=== PATIENT | female | born 1990 | race Caucasian/White ===

== ENCOUNTER 2018-07-11 14:15 | Inpatient (IN) | payer OTHER ==
[2018-07-11] MEDS ORDERED: MEPERIDINE HCL 25 MG/0.5 ML IV PRN (16:39)
[2018-07-11] MEDS ORDERED: BUTORPHANOL 1 MG/ML INJ IV PRN (16:39)
[2018-07-11] MEDS ORDERED: Ringers Lactate 1,000 ML IV PRN (16:39)
[2018-07-11] MEDS ORDERED: METHYLERGONOVINE 0.2MG/ML AMP IM PRN (16:39)
[2018-07-11] MEDS ORDERED: PROMETHAZINE 25 MG/ML VIAL IM PRN (16:39)
[2018-07-11] MEDS ORDERED: ZOLPIDEM TARTRATE 10 MG TABLET PO PRN (16:46)
[2018-07-11] MEDS ORDERED: OXYTOCIN/LR 20 UNIT/1,000 ML BAG IV SCH (17:00)
[2018-07-11] MEDS ORDERED: Ringers Lactate 1,000 ML IV SCH (17:00)
[2018-07-11] MEDS ORDERED: miSOPROStol 100 MCG TAB PO SCH (17:00)
[2018-07-11 17:09] LABS: RPR Titer ND
[2018-07-11 17:13] LABS: Absolute Lymphocytes (CBC) 2.4 K/uL (0.7-4.9); Absolute Monocytes 1.2 K/uL (0.1-1.3); Absolute Neutrophil 12.6 K/uL (1.8-8.0); Basophils % 0.3 % (0-1.3); Eosinophils % 0.3 % (0-4.4); Hematocrit 37.3 % (36.0-45.0); Lymphocytes % 14.6 % (15.3-44.8); MCH 30.5 pg (27.0-35.0); MCV 90.5 fL (80-100); MPV 9.7 fL (7.6-11.3); Monocytes % 7.3 % (3.3-12.3); RBC Red Blood Cell Count 4.13 M/uL (3.86-4.86)
[2018-07-11 17:23] LABS: Urine Appearance CLOUDY; Urine Bilirubin NEGATIVE (NEG); Urine Blood NEGATIVE (NEG); Urine Color YELLOW; Urine Glucose NEGATIVE (NEG); Urine Protein NEGATIVE (NEG); Urine Urobilinogen 0.2 mg/dL (0.2-1.0)
[2018-07-11 17:43] LABS: Urine Microscopic Reflex ORDER UMIC
[2018-07-11 17:58] LABS: Urine Bacteria <20 /HPF (<20); Urine Culture Reflex Order REFLEXED; Urine RBC <5 /HPF (NONE SEEN)
[2018-07-11 18:01] LABS: Urine Mucus 1+ /HPF (NONE SEEN); Urine Yeast FEW (NONE SEEN); Urine Yeast with Hyphae PRESENT
[2018-07-11 18:21] VITALS: BMI 28.0
[2018-07-11 22:20] LABS: RPR (Rapid Plasma Reagin) NON-REACT (NON-REACT)
--- NOTE | 2018-07-11 22:20 | PREOPHP ---
Date of Admission: 07/11/2018 Sharonda Jones is a 28-year-old, 2, para 1, 39 weeks 3 days, Rh positive, immune to Rubella, n egative beta strep screen, for Cytotec induction. The patient is 1.5 cm vertex, -1 station. Cytotec talk given. The patient will start with 25 mcg p.o. every 4 hours for somewhere between 3 and 6 dos es depending upon response. Then, after cervical ripening, start Pitocin induction. This has been ramila morse discussed with the patient in the office and here again today with her in attendance. Ramila naylor admission talk given. SAAD/VIDAL Voice ID: [id number]
[2018-07-12] MEDS ORDERED: FENTANYL/BUPIVACAINE/NS/PF 200 MCG/100 ML BAG EP PRN (07:28)
[2018-07-12] MEDS ORDERED: BUPIVACAINE 0.25% PF 10 ML VIAL IV PRN (07:29)
[2018-07-12] MEDS ORDERED: FENTANYL CITR 100 MCG/2 ML IV ONE (07:29)
[2018-07-12] MEDS ORDERED: BUPIVACAINE 0.25% PF 10 ML VIAL ONE (09:06)
[2018-07-12] MEDS ORDERED: LIDOCAINE 1% MPF 30 ML VIAL ONE (10:58)
[2018-07-12] MEDS ORDERED: METHYLERGONOVINE 0.2MG/ML AMP IM ONE (10:58)
[2018-07-12] MEDS ORDERED: ACETAMINOPHEN 500 MG TAB PO PRN (11:58)
[2018-07-12] MEDS ORDERED: IBUPROFEN 200 MG TAB PO PRN (11:58)
[2018-07-12] MEDS ORDERED: DOCUSATE NA/SENNA CONC 1 TAB PO PRN (11:58)
[2018-07-12] MEDS ORDERED: DIPHENHYDRAMINE 25 MG TAB/CAP PO PRN (11:58)
[2018-07-12] MEDS ORDERED: Oxycodone HCl/Acetaminophen 1 TAB TAB PO PRN (11:58)
[2018-07-12] MEDS ORDERED: BISACODYL 10 MG RECTAL SUPP RECT PRN (11:58)
[2018-07-12] MEDS ORDERED: OXYTOCIN/LR 20 UNIT/1,000 ML BAG IV SCH (12:00)
--- NOTE | 2018-07-12 12:42 | OP ---
Surgeon: Ramirez Almanzar MD A 28-year-old 2, para 1, 39 weeks 3 days, had Cytotec cervical ripening. This morning was st arted on oxytocin at 39 weeks and 4 days. Progressed rapidly after membrane rupture. Epidural anest hesia established at approximately 3 cm, gave excellent effect during remainder of labor and delivery . Second stage of 10 minutes or less. Spontaneous vaginal delivery of an estimated 8 pound plus mal e . Nuchal cord tightly x1, but Apgars 9 and 9. No episiotomy. Small first degree laceration x2 repaired with 2-0 chromic. Schultze delivery of the placenta, which was inspected and noted to b e intact and normal. A 350 cc estimated blood loss. Tolerated all procedures well. Rh positive, im mune to Rubella. Negative beta-strep screen. Final Diagnoses: Intrauterine gestation, 39 weeks 4 days, on delivery. Cytotec cervical ripening, e pidural anesthesia, and nuchal cord x1. GIOVANIC/MODL Voice ID: [id number] Report ID: [id number]
[2018-07-12] MEDS: Oxycodone HCl/Acetaminophen 1 TAB TAB PO PRN ×2 (18:39→22:53)
[2018-07-13] MEDS: Oxycodone HCl/Acetaminophen 1 TAB TAB PO PRN ×2 (08:30→12:43)
[2018-07-13 09:56] VITALS: TEMP 97.7
[2018-07-13 13:35] VITALS: BP 127/76
--- NOTE | 2018-07-13 15:57 | PN ---
The patient had 3 doses of Cytotec and now has been started on Pitocin. She is tonny regularly every 2 minutes. FHTs normal, reactive. Vital signs are all stable. She is 2 cm, somewhat posteri or but 50% effaced, vertex, well applied. Rupture of membranes, clear fluid. Anticipate more active progress from this point forward. Full labor talk given. The patient will be requesting epidural, but at this point, she is doing well without any kind of medication. SAAD/VIDAL Voice ID: [id number] Report ID: [id number]
--- NOTE | 2018-07-14 05:20 | DS ---
Date of Discharge: 07/13/2018 Hospital Course: The patient is a 28-year-old, 2, para 1, at 39 weeks 4 days, Cytotec for ce rvical ripening, worked quite well. Next morning, in active labor. Short second stage. Spontaneous vaginal delivery of an 8 pound male infant, Apgars 9 and 9. Two small first degree lacerations, rep aired with 2-0 chromic. Epidural anesthesia gave good effect. Schultze delivery of the placenta. E stimated blood loss 350 cc. Placenta inspected, and noted to be intact and normal. Nuchal cord one time at the time of delivery noted. Rh positive. Immune to Rubella. Negative beta strep screen. P ostpartum; afebrile, ambulating, and voiding. Lochia is normal. Will be dismissed. To return to my office in 6 weeks for followup. To report any temperature elevation of 100 degrees or greater, cassy re pain, heavy bleeding, or any other type of abnormalities. No post epidural problems. Dismissed w ith tramadol for analgesia, although she may prefer to take Motrin instead. Full dismissal instructi ons. Final Diagnoses: Intrauterine gestation, 39 weeks 4 days, Cytotec for cervical ripening, vaginal del bakari, epidural anesthesia. SAAD/LORRAINEL Voice ID: [id number] Report ID: [id number]
[2018-07-14 19:47] LABS: HBsAG Nonreactive (Nonreactive)
== END 2018-07-13 16:00 | disposition home or self-care (01) | DRG 775 ==
LOC: 2ND-WC 16:15
PROVIDERS: ADMIT Specialist; ATTEND Specialist
PROC: 3E033VJ Introduction of Other Hormone into Peripheral Vein, Percutaneous Approach (ICD-10-PCS; 2018-07-11)
PROC: 10907ZC Drainage of Amniotic Fluid, Therapeutic from Products of Conception, Via Natural or Artificial Opening (ICD-10-PCS; principal; 2018-07-12)
PROC: 10E0XZZ Delivery of Products of Conception, External Approach (ICD-10-PCS; 2018-07-12)
PROC: 0HQ9XZZ Repair Perineum Skin, External Approach (ICD-10-PCS; 2018-07-12)
DX: O70.0 First degree perineal laceration during delivery (principal); O69.81X0 Labor and delivery complicated by cord around neck, without compression, not applicable or unspecified; Z3A.39 39 weeks gestation of pregnancy; Z37.0 Single live birth
CPT/HCPCS: 36415; 81003; 81015; 85025; 86592; 86901; 87086; 87088; 87340; J0595; J2210; J2550; J2590; J3010